=== PATIENT | female | born 1995 | race African-American/Black ===

== ENCOUNTER 2022-03-19 03:36 | Emergency (ER) | payer OTHER ==
[~2022-03-19] VITALS: Ht 157.5 cm; Wt 64.7 kg
[2022-03-19 04:28] VITALS: BP 112/63
[2022-03-19] MEDS ORDERED: HYDR30CR3 TP (04:28)
== END 2022-03-19 04:43 ==
LOC: EMS 03:37
DX: B86 Scabies (principal); Z87.42 Personal history of other diseases of the female genital tract
CPT/HCPCS: 99283; Z7502